=== PATIENT | female | born 1940 | race African-American/Black ===

== ENCOUNTER 2021-02-02 10:45 | Day surgery (SDC) | payer OTHER ==
[2021-02-02 10:59] VITALS: BMI 30.4
[2021-02-02 13:50] VITALS: TEMP 97.7
[2021-02-02 16:03] VITALS: BP 186/89; PULSE 93
== END 2021-02-02 16:03 | disposition home or self-care (01) ==
LOC: JASU-ENDO 10:45
PROVIDERS: ATTEND Internal Medicine Gastroenterology
PROC: 0D568ZZ Destruction of Stomach, Via Natural or Artificial Opening Endoscopic (ICD-10-PCS; principal; 2021-02-02)
DX: K31.A0 Gastric intestinal metaplasia, unspecified (principal)

== ENCOUNTER 2021-11-27 04:44 | Day surgery (SDC) | payer OTHER ==
[2021-11-26 14:53] VITALS: BMI 32.0
[2021-11-27 13:33] VITALS: PULSE 81
[2021-11-27] MEDS ORDERED: SIMETHICONE 80 MG TAB.CHEW (FP) PO PRN (14:15)
[2021-11-27] MEDS ORDERED: ACETAMINOPHEN 500 MG TABLET (FP) PO PRN (14:16)
[2021-11-27 14:32] VITALS: BP 183/86; RESP 13; TEMP 97.9
== END 2021-11-27 14:50 | disposition home or self-care (01) ==
LOC: JASU-ENDO 04:44
PROVIDERS: ATTEND Internal Medicine Gastroenterology
PROC: 0D578ZZ Destruction of Stomach, Pylorus, Via Natural or Artificial Opening Endoscopic (ICD-10-PCS; 2021-11-27)
PROC: 0D568ZZ Destruction of Stomach, Via Natural or Artificial Opening Endoscopic (ICD-10-PCS; principal; 2021-11-27 12:00)
DX: K31.7 Polyp of stomach and duodenum (principal)
CPT/HCPCS: 71046-TC-FY; 74019-TC-FY; 82962; 88305-TC; 88341-TC; 88342-TC